=== PATIENT | female | born 1940 ===

== ENCOUNTER 2017-02-03 09:53 | Emergency (ER) | payer MEDICARE, OTHER ==
[2017-02-03 09:55] VITALS: BMI 36.3
--- NOTE | 2017-02-03 10:20 | ED PDOC ---
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 ) - History of Present Illness Narrative History of Present Illness (Text): 02/03/17 10:10 Judy Messer is a 76 year old female, whose past medical history includes hypertension, presents to the emergency department, accompanied by family, complaining of a productive cough with yellow sputum since last week. Patient notes associated chest pain when coughing but denies any shortness of breath, vomiting, fever, headache, chills, nausea, or any other complaints. PMD: None 02/03/17 15:13 Time/Duration: 1 week Symptom Onset: Sudden Symptom Course: Unchanged Activities at Onset: Rest Modifying Factors (Text): chest pain and shortness of breath when coughing Context: Home Associated Symptoms (Text): shortness of breath and chest pain Past Medical History - Provider Review Nursing Documentation Reviewed: Yes - Infectious Disease Hx of Infectious Diseases: None - Tetanus Immunization Tetanus Immunization: Unknown - Reproductive Menopause: Yes - Cardiac Hx Hypertension: Yes - Pulmonary Hx Respiratory Disorders: No - Neurological Hx Neurological Disorder: No - HEENT Hx HEENT Disorder: Yes Hx Cataracts: Yes (BIOL) - Renal Hx Renal Disorder: No - Endocrine/Metabolic Hx Endocrine Disorders: No - Hematological/Oncological Hx Blood Disorders: No - Integumentary Hx Dermatological Disorder: No - Musculoskeletal/Rheumatological Hx Arthritis: Yes - Gastrointestinal Hx Gastrointestinal Disorders: Yes Hx Colitis: Yes Hx Gastritis: Yes - Genitourinary/Gynecological Hx Genitourinary Disorders: No - Psychiatric Hx Psychophysiologic Disorder: Yes Hx Anxiety: Yes Hx Depression: Yes Hx Substance Use: No - Surgical History Hx Cataract Extraction: Yes Hx Cholecystectomy: Yes - Anesthesia Hx Anesthesia: Yes Hx Anesthesia Reactions: No Hx Malignant Hyperthermia: No - Suicidal Assessment Feels Threatened In Home Enviroment: No Family/Social History - Physician Review Nursing Documentation Reviewed: Yes Family/Social History: Unknown Family HX Smoking Status: Unknown If Ever Smoked Hx Alcohol Use: No Hx Substance Use: No Allergies/Home Meds Allergies/Adverse Reactions: Allergies No Known Allergies Allergy (Verified 01/24/16 14:54) Home Medications: Home Meds Medication Instructions Recorded Confirmed Losartan Potassium 25 mg PO DAILY 01/15/14 02/03/17 Omeprazole [Prilosec] 20 mg PO DAILY 12/30/15 02/03/17 Aspirin [Ecotrin] 81 mg PO DAILY 02/03/17 02/03/17 Atorvastatin [Lipitor] 10 mg PO DAILY 02/03/17 02/03/17 Review of Systems - Review of Systems Constitutional: absent: Fevers Eyes: absent: Vision Changes ENT: absent: Hearing Changes, Rhinorrhea, Epistaxis Respiratory: Cough, Sputum. absent: SOB, Wheezing Cardiovascular: Chest Pain (when coughing). absent: Palpitations Gastrointestinal: absent: Abdominal Pain, Diarrhea, Vomiting Genitourinary Female: absent: Dysuria, Frequency Musculoskeletal: absent: Back Pain, Neck Pain Skin: absent: Rash Neurological: absent: Headache, Dizziness Endocrine: absent: Diaphoresis Psychiatric: absent: Depression Physical Exam Vital Signs Reviewed: Yes Vital Signs Temp Pulse Resp BP Pulse Ox 02/03/17 12:21 98.7 F 98 H 16 116/65 100 02/03/17 11:58 98.4 F 94 H 18 142/64 96 02/03/17 09:59 98.4 F 109 H 18 118/67 98 02/03/17 09:53 99.3 F 107 H 18 118/67 99 Temperature: Afebrile Blood Pressure: Normal Pulse: Regular Respiratory Rate: Normal Appearance: Positive for: Well-Appearing, Non-Toxic Pain Distress: None Mental Status: Positive for: Alert and Oriented X 3 - Systems Exam Head: Present: Atraumatic, Normocephalic Pupils: Present: PERRL Extroacular Muscles: Present: EOMI Conjunctiva: Present: Normal Mouth: Present: Moist Mucous Membranes Neck: Present: Normal Range of Motion Respiratory/Chest: Present: Clear to Auscultation, Good Air Exchange, Respiratory Distress Cardiovascular: Present: Regular Rate and Rhythm, Normal S1, S2. No: Murmurs Abdomen: Present: Normal Bowel Sounds. No: Tenderness, Distention, Peritoneal Signs Back: Present: Normal Inspection. No: Midline Tenderness Upper Extremity: Present: Normal Inspection. No: Cyanosis, Edema Lower Extremity: Present: Normal Inspection. No: Edema Neurological: Present: GCS=15, CN II-XII Intact, Speech Normal Skin: Present: Warm, Dry, Normal Color. No: Rashes Psychiatric: Present: Alert, Oriented x 3, Normal Insight, Normal Concentration Medical Decision Making ED Course and Treatment: 02/03/17 10:10 Impression: 76 year old female with a non productive cough. Differential Diagnosis included but are not limited to: pneumonia vs. bronchitis Plan: -- EKG -- Chest X-ray -- Labs -- Reassess and disposition Prior Visits: Notes and results from previous visits were reviewed. The patient last presented to the emergency department on 01/24/16 for evaluation of abdominal pain. Progress Notes: EKG: Ordered, reviewed, and independently interpreted the EKG. Rate : 107 BPM Rhythm : Sinus tachycardia Interpretation : normal intervals, no ST changes. 02/03/17 12:10 Chest X-ray: Creator : Gilbert Harrison MD COMPARISON: 01/24/2016 FINDINGS: LUNGS: No active pulmonary disease. PLEURA: No significant pleural effusion identified. No pneumothorax apparent. CARDIOVASCULAR: Normal. OSSEOUS STRUCTURES: No significant abnormalities. VISUALIZED UPPER ABDOMEN: Normal. OTHER FINDINGS: None. IMPRESSION: No active disease. 02/03/17 14:37 Patient has isolated cough. She is not a smoker. Cxray negative for pna. Labs WNL. Patient has normal vitals and is well appearing. She was discharged with cough medication and instructed to follow-up with PMD 02/03/17 15:14 - Lab Interpretations Lab Results: 02/03/17 10:15 02/03/17 10:15 Lab Results 02/03/17 10:15: Sodium 143, Potassium 4.2, Chloride 106, Carbon Dioxide 29, Anion Gap 12, BUN 17, Creatinine 0.8, Est GFR ( Amer) > 60, Est GFR (Non- Af Amer) > 60, Random Glucose 108, Calcium 8.9, Total Bilirubin 0.3, AST 49 H, ALT 44, Alkaline Phosphatase 98, Total Protein 6.8, Albumin 3.4, Globulin 3.4, Albumin/Globulin Ratio 1.0 L 02/03/17 10:15: WBC 5.9 D, RBC 3.37 L, Hgb 10.2 L, Hct 30.6 L, MCV 90.8, MCH 30.3, MCHC 33.3, RDW 13.0, Plt Count 231, MPV 8.6, Gran % 72.8 H, Lymph % (Auto ) 16.8 L, [place] % (Auto) 8.2 H, Eos % (Auto) 1.9, Baso % (Auto) 0.3, Gran # 4.32 , Lymph # 1.0 L, Alger # 0.5, Eos # 0.1, Baso # 0.02 I have reviewed the lab results: Yes - RAD Interpretation Radiology Orders: 02/03/17 10:13 CHEST TWO VIEWS (PA/LAT) [RAD] Stat - Medication Orders Current Medication Orders: Discontinued Medications Benzonatate (Tessalon Perles) 100 mg PO STAT STA Stop: 02/03/17 12:14 Last Admin: 02/03/17 12:19 Dose: 100 mg Curb-65 Severity Score - CURB-65 Severity Score Confusion: No Bun >19mg/dl (>7mmol/L): No Respiratory Rate greater than/equal to 30: No Systolic BP <90 or Diastolic BP less than/equal 60mmHg: No Age >64: Yes Curb-65 Score: 1 Percentage 30-day mortality: 2.7% - Scribe Statement The provider has reviewed the documentation as recorded by the Scribe 02/03/17 Corina Nicole training with Efraín Patten Provider Scribe Attestation: All medical record entries made by the Scribe were at my direction and personally dictated by me. I have reviewed the chart and agree that the record accurately reflects my personal performance of the history, physical exam, medical decision making, and the department course for this patient. I have also personally directed, reviewed, and agree with the discharge instructions and disposition. Disposition/Present on Arrival - Present on Arrival Any Indicators Present on Arrival: No History of DVT/PE: No History of Uncontrolled Diabetes: No Urinary Catheter: No History of Decub. Ulcer: No History Surgical Site Infection Following: None - Disposition Have Diagnosis and Disposition been Completed?: Yes Diagnosis: Cough Disposition: HOME/ ROUTINE Disposition Time: 12:13 Patient Plan: Discharge Condition: GOOD Discharge Instructions (ExitCare): Acute Cough (ED) Print Language: ITALIAN Additional Instructions: Follow up with PMD within 2 days. Return to emergency department if condition worsens. Prescriptions: Benzonatate [Tessalon Perles] 100 mg PO TID PRN #30 sgl PRN Reason: Cough
[2017-02-03 11:03] LABS: BASO # 0.02 K/mm3 (0.0-2.0); BASO % 0.3 % (0.0-3.0); EOS # 0.1 (0.0-0.7); EOS % 1.9 % (1.5-5.0); GRAN # 4.32 (1.4-6.5); GRAN % 72.8 % (50.0-68.0); HEMOGLOBIN 10.2 gm/dL (12.0-16.0); LYMPH % 16.8 % (22.0-35.0); MEAN CELL VOLUME 90.8 fL (80.0-105.0); MEAN CORPUSCULAR HEMOGLOBIN 30.3 pg (25.0-35.0); MEAN CORPUSCULAR HGB CONC 33.3 g/dl (31.0-37.0); MEAN PLATELET VOLUME 8.6 fl (7.0-11.0); MONO # 0.5 (0.1-0.6); MONO % 8.2 % (1.0-6.0); PLATELET COUNT 231 10^3/uL (120.0-450.0); RBC 3.37 10^6/uL (3.5-6.1); WHITE BLOOD COUNT 5.9 10^3/ul (4.5-11.0)
[2017-02-03 11:16] LABS: ALBUMIN 3.4 g/dL (3.0-4.8); ALT/SGPT 44 U/L (7-56); AST/SGOT 49 U/L (15-39); BLOOD UREA NITROGEN 17 mg/dL (7-21); CALCIUM 8.9 mg/dL (8.4-10.5); GFR AFRICAN-AMERICAN > 60; GFR NON-AFRICAN AMERICAN > 60
--- NOTE | 2017-02-03 12:09 | RAD ---
HISTORY: cough COMPARISON: 01/24/2016 TECHNIQUE: Chest PA and lateral FINDINGS: LUNGS: No active pulmonary disease. PLEURA: No significant pleural effusion identified. No pneumothorax apparent. CARDIOVASCULAR: Normal. OSSEOUS STRUCTURES: No significant abnormalities. VISUALIZED UPPER ABDOMEN: Normal. OTHER FINDINGS: None. IMPRESSION: No active disease.
[2017-02-03 12:21] VITALS: BP 116/65; PULSE 98; RESP 16; TEMP 98.7; O2SAT 100
--- NOTE | 2017-02-03 13:39 | CARD ---
APPROVED REPORT EKG Measurement Heart [id number] <Conclusion> Sinus tachycardia Small inferior q waves NSSTW changes
== END 2017-02-03 12:24 | disposition home or self-care (01) ==
LOC: ED 09:53
DX: R05 Cough (principal); I10 Essential (primary) hypertension

== ENCOUNTER 2018-11-30 12:14 | Outpatient (CLI) | payer OTHER | END 2018-11-30 12:15 | disposition home or self-care (01) | LOC: RAD 12:14 ==